=== PATIENT | male | born 1975 | race Caucasian/White ===

== ENCOUNTER 2018-05-03 15:53 | Observation (INO) ==
[2018-05-03] MEDS ORDERED: Isovue-370 500 ML INFUS..BTL IV ONE (16:25)
--- NOTE | 2018-05-03 17:01 | Emergency Department Note ---
Disposition Clinical Impression: Abscess Disposition: Admitted As Inpatient Condition: Good Time of Disposition: 20:59 General Adult HPI - General Chief complaint: ED GI Bleed Stated complaint: Need CT Time Seen by Provider: 05/03/18 16:15 Source: patient Limitations: no limitations Nursing Notes Reviewed: Yes Vital Signs Reviewed: Yes - History of Present Illness HPI Narrative: 42yo male presents from home at the recommendation of his surgeon, Dr. Jacobo. 6 days ago, patient began expressing symptoms of a hemorrhoid. 4 days ago, he was diagnosed with hemorrhoid urgent care. 2 days ago, he followed up with his primary care physician who diagnosed him with a thrombosed hemorrhoid and referred to general surgery. 2 days ago, he saw general surgery who noted the thrombosed steroid was too old for surgical resection. Since then, patient has had worsening pain perianally when sitting and has a palpable increase in renal swelling. He has had chills at night for the last 2 nights. He called his surgeon today who is concerned that the thrombosed hemorrhoid may have developed into an abscess. ROS: Positive: As above Negative: Melena, hematochezia, dysuria, lower extremity numbness/tingling/ weakness, saddle anesthesia, measured fever, chest pains, palpitations, dyspnea , diaphoresis, abdominal pain, usual back pain. No history of IV drug use. Pain Scale: 7 - Related Data Home Medications Medication Instructions Recorded Confirmed Methotrexate 04/29/18 Tylenol 04/29/18 Previous Rx's Medication Instructions Recorded Hydrocortisone [Anusol-Hc] 30 gm RC BID 14 Days #24 cream..g. 04/29/18 Allergies Allergy/AdvReac Type Severity Reaction Status Date / Time Penicillins [PCN] AdvReac Hives Verified 04/29/18 20:41 All systems ED: reviewed and negative except as stated. Review of Systems: As Per HPI Past Medical History - Past Medical History Medical history: Reports: non-contributory, cirrhosis - Social History Smoking Status: Never smoker Smokeless Tobacco Status: No Alcohol use: Reports: none Physical Exam Vital Signs Reviewed General: Patient is alert, oriented, and in no acute distress. Head: atraumatic, normocephalic Eye: normal appearance, PERRL, EOMI, no scleral icterus, no conjunctival injection ENT: mucous membranes moist, normal external ear exam Neck: normal inspection, trachea midline, full ROM Chest: normal inspection, symmetric chest rise Respiratory: Good respiratory effort. Bilateral breath sounds are clear without wheezing, crackles, or rhonchi. Cardiovascular: Regular rate and rhythm. No clicks, rubs, gallops, or murmors. Normal heart sounds. Abdomen: Bowel sounds present normoactive x-4 quadrants. Abdomen is soft, nondistended, and nontender. No guarding or rebound. Rectal exam: Payroll Accounting Specialist present. External rectal exam revealed anterior hemorrhoid which appeared thrombosed. There is left perianal erythema with fluctuant subcutaneous mass, exquisitely tender to palpation. Digital rectal exam was not performed. Musculoskeletal: Spontaneously moving all extremities. Skin: warm, dry, intact. Neuro: Alert and oriented x4. Sensation light touch intact. Psych: Patient's affect is appropriate for situation. - General Limitations: no limitations General appearance: alert, in no apparent distress Course Course Narrative: CT abdomen pelvis with IV contrast. Patient denies need for analgesia at this time. No clinical concerns for sepsis. Clinically concern for abscess. Physical exam clinically consistent with perirectal abscess. CT abdomen pelvis indeterminate per radiology read. On my evaluation, there does appear to be inflammatory changes; uncertain about fluid collection based on CT abdomen pelvis with IV contrast. Begin empiric antibiotics: Levaquin and Flagyl. Discussed the patient with the on-call surgeon, Dr. Neil, who agrees to accept the patient to his service for continued evaluation and management. Discussed the above with the patient. He is agreeable to admission for continued evaluation and management. Initially refused the for analgesia however, along the ED, his pain is progressed and is requesting pain control medication at this time. Will provide fentanyl. Abdomen/Pelvis CT 05/03/18 16:25 IMPRESSION: Inflammatory changes surrounding the anus, greater on the left. These changes may represent inflammation due to a thrombosed hemorrhoid. A developing abscess, however, is not excluded as the abnormality is incompletely imaged. CT of the pelvis with contrast to include the upper thighs is suggested for further evaluation. D/ / 05/03/2018 18:32:59 Carson Brian MD / anna Interpreting Provider: Carson Brian MD Vital Signs Temperature 97.9 F 05/03/18 16:07 Pulse Rate 84 05/03/18 16:07 Respiratory Rate 16 05/03/18 16:07 Blood Pressure 129/81 05/03/18 16:07 O2 Sat by Pulse Oximetry 97 05/03/18 16:07 Temperature 98.7 F 05/03/18 20:53 Pulse Rate 76 05/03/18 20:53 Respiratory Rate 14 05/03/18 20:53 Blood Pressure 131/80 05/03/18 20:53 O2 Sat by Pulse Oximetry 94 05/03/18 20:53 Oxygen Delivery Oxygen Delivery Room Air Medical Decision Making - Lab Data Result diagrams: 05/03/18 16:25 05/03/18 16:21 Lab Results 05/03/18 05/03/18 05/03/18 Range/Units 16:21 16:23 16:25 WBC 13.1 H (4.3-11.1) K/mcL RBC 4.76 (4.19-5.50) M/mcL Hgb 14.4 (12.9-16.9) g/dL Hct 41.8 (37.5-50.1) % MCV 87.8 (83.0-100.0) fL MCH 30.3 (28.0-33.3) pg MCHC 34.4 (31.6-35.5) g/dL RDW 13.0 (11.5-14.5) % Plt Count 332 (140-400) K/mcL MPV 11.5 (9.4-12.4) fL Immature Gran % 0.4 (0-4) % Seg Neutrophils % 77.9 % Lymphocytes % 12.9 % Monocytes % 7.7 % Eosinophils % 0.8 % Basophils % 0.3 % Neutrophils # 10.2 H (1.6-8.9) K/mcL Lymphocytes # 1.7 (0.6-4.6) K/mcL Monocytes # 1.0 (0.0-1.3) K/mcL Eosinophils # 0.1 (0.0-0.6) K/mcL Basophils # 0.0 (0.0-0.2) K/mcL PT 12.5 H (9.4-12.1) Seconds INR 1.1 Sodium 136 (136-145) mEq/L Potassium 3.4 L (3.5-5.1) mEq/L Chloride 95 L (98-107) mEq/L Carbon Dioxide 36 H (23-29) mEq/L BUN 15 (6-20) mg/dL Creatinine 0.91 (0.70-1.30) mg/dL Est GFR ( Amer) > 60 (> 60) Est GFR (Non-Af Amer) > 60 (> 60) BUN/Creatinine Ratio 16 (6-26) Glucose 110 H (70-105) mg/dL Calculated Osmolality 283 (280-300) Calcium 9.8 (8.6-10.3) mg/dL Total Bilirubin 0.6 (0.3-1.0) mg/dL AST 26 (13-39) Units/L ALT 52 (7-52) Units/L Alkaline Phosphatase 91 (34-104) Units/L Serum Total Protein 7.5 (6.4-8.9) g/dL Albumin 4.0 (3.5-5.7) g/dL Globulin 3.5 (2.4-3.5) g/dL Albumin/Globulin Ratio 1.1 (1.1-2.2)
[2018-05-03 17:10] LABS: Basophils % 0.3 %; Eosinophils # 0.1 K/mcL (0.0-0.6); Eosinophils % 0.8 %; Hematocrit 41.8 % (37.5-50.1); Hemoglobin 14.4 g/dL (12.9-16.9); Immature Granulocytes % 0.4 % (0-4); Lymphocytes # 1.7 K/mcL (0.6-4.6); Lymphocytes % 12.9 %; Mean Corpuscular HGB Conc 34.4 g/dL (31.6-35.5); Mean Corpuscular Hemoglobin 30.3 pg (28.0-33.3); Mean Corpuscular Volume 87.8 fL (83.0-100.0); Mean Platelet Volume 11.5 fL (9.4-12.4); Monocytes % 7.7 %; Neutrophils # 10.2 K/mcL (1.6-8.9); Platelet Count 332 K/mcL (140-400); Red Blood Count 4.76 M/mcL (4.19-5.50); Segmented Neutrophils % 77.9 %
[2018-05-03 17:17] LABS: INR 1.1; Prothrombin Time 12.5 Seconds (9.4-12.1)
--- NOTE | 2018-05-03 17:24 | Emergency Department Note ---
Disposition Clinical Impression: Abscess Disposition: Admitted As Inpatient Condition: Good General Adult HPI - General Chief complaint: ED GI Bleed Stated complaint: Need CT Time Seen by Provider: 05/03/18 16:15 Source: patient Limitations: no limitations - History of Present Illness Pain Scale: 7 - Related Data Home Medications Medication Instructions Recorded Confirmed Methotrexate 04/29/18 Tylenol 04/29/18 Previous Rx's Medication Instructions Recorded Hydrocortisone [Anusol-Hc] 30 gm RC BID 14 Days #24 cream..g. 04/29/18 Allergies Allergy/AdvReac Type Severity Reaction Status Date / Time Penicillins [PCN] AdvReac Hives Verified 04/29/18 20:41 Past Medical History - Past Medical History Medical history: Reports: non-contributory, cirrhosis - Social History Smoking Status: Never smoker Smokeless Tobacco Status: No Alcohol use: Reports: none Physical Exam - General Limitations: no limitations General appearance: alert, in no apparent distress Course Vital Signs Temperature 97.9 F 05/03/18 16:07 Pulse Rate 84 05/03/18 16:07 Respiratory Rate 16 05/03/18 16:07 Blood Pressure 129/81 05/03/18 16:07 O2 Sat by Pulse Oximetry 97 05/03/18 16:07 Temperature 98.7 F 05/03/18 20:53 Pulse Rate 76 05/03/18 20:53 Respiratory Rate 14 05/03/18 20:53 Blood Pressure 131/80 05/03/18 20:53 O2 Sat by Pulse Oximetry 94 05/03/18 20:53 Oxygen Delivery Oxygen Delivery Room Air Medical Decision Making - Lab Data Result diagrams: 05/03/18 16:25 05/03/18 16:21 Lab Results 05/03/18 05/03/18 05/03/18 Range/Units 16:21 16:23 16:25 WBC 13.1 H (4.3-11.1) K/mcL RBC 4.76 (4.19-5.50) M/mcL Hgb 14.4 (12.9-16.9) g/dL Hct 41.8 (37.5-50.1) % MCV 87.8 (83.0-100.0) fL MCH 30.3 (28.0-33.3) pg MCHC 34.4 (31.6-35.5) g/dL RDW 13.0 (11.5-14.5) % Plt Count 332 (140-400) K/mcL MPV 11.5 (9.4-12.4) fL Immature Gran % 0.4 (0-4) % Seg Neutrophils % 77.9 % Lymphocytes % 12.9 % Monocytes % 7.7 % Eosinophils % 0.8 % Basophils % 0.3 % Neutrophils # 10.2 H (1.6-8.9) K/mcL Lymphocytes # 1.7 (0.6-4.6) K/mcL Monocytes # 1.0 (0.0-1.3) K/mcL Eosinophils # 0.1 (0.0-0.6) K/mcL Basophils # 0.0 (0.0-0.2) K/mcL PT 12.5 H (9.4-12.1) Seconds INR 1.1 Sodium 136 (136-145) mEq/L Potassium 3.4 L (3.5-5.1) mEq/L Chloride 95 L (98-107) mEq/L Carbon Dioxide 36 H (23-29) mEq/L BUN 15 (6-20) mg/dL Creatinine 0.91 (0.70-1.30) mg/dL Est GFR ( Amer) > 60 (> 60) Est GFR (Non-Af Amer) > 60 (> 60) BUN/Creatinine Ratio 16 (6-26) Glucose 110 H (70-105) mg/dL Calculated Osmolality 283 (280-300) Calcium 9.8 (8.6-10.3) mg/dL Total Bilirubin 0.6 (0.3-1.0) mg/dL AST 26 (13-39) Units/L ALT 52 (7-52) Units/L Alkaline Phosphatase 91 (34-104) Units/L Serum Total Protein 7.5 (6.4-8.9) g/dL Albumin 4.0 (3.5-5.7) g/dL Globulin 3.5 (2.4-3.5) g/dL Albumin/Globulin Ratio 1.1 (1.1-2.2) Attestation Statement - Attestation Attestation: I examined this patient and my medical decision-making was reviewed with the Resident Physician. I agree with the documented findings, disposition and treatment plan as described except to the extent set forth below. Patient to the ED with a chief complaint of possible abscess. Patient's all surgery Tuesday for thrombosed hemorrhoid. It is more painful and is having fever chills so they sent him for CT rule out an abscess. Plan. CT pelvis. CT reviewed. Reexamined patient. He has a large erythematous tender area at the 9 o'clock position. This appears consistent with an early abscess. IV antibiotic. Patient is admitted. Abdomen/Pelvis CT 05/03/18 16:25 IMPRESSION: Inflammatory changes surrounding the anus, greater on the left. These changes may represent inflammation due to a thrombosed hemorrhoid. A developing abscess, however, is not excluded as the abnormality is incompletely imaged. CT of the pelvis with contrast to include the upper thighs is suggested for further evaluation. D/ / 05/03/2018 18:32:59 Carson Brian MD / anna Interpreting Provider: Carson Brian MD
[2018-05-03 17:48] LABS: Alanine Aminotransferase 52 Units/L (7-52); Albumin/Globulin Ratio 1.1 (1.1-2.2); Alkaline Phosphatase 91 Units/L (34-104); Aspartate Amino Transferase 26 Units/L (13-39); BUN/Creatinine Ratio 16 (6-26); Bilirubin,Total 0.6 mg/dL (0.3-1.0); Blood Urea Nitrogen 15 mg/dL (6-20); Calcium 9.8 mg/dL (8.6-10.3); Carbon Dioxide 36 mEq/L (23-29); Chloride 95 mEq/L (98-107); Globulin 3.5 g/dL (2.4-3.5); Glucose 110 mg/dL (70-105); Osmolality,Calculated 283 (280-300); Potassium 3.4 mEq/L (3.5-5.1); Sodium 136 mEq/L (136-145); Total Protein 7.5 g/dL (6.4-8.9); eGFR For Non-African Americans > 60 (> 60)
[2018-05-03] MEDS ORDERED: *HR* FentaNYL (PF) 100 MCG/2 ML VIAL IVP ONE (17:57)
[2018-05-03] MEDS ORDERED: Levofloxacin 750 MG/150 ML 750 MG/150 ML BAG IVPB ONE (18:41)
[2018-05-03] MEDS ORDERED: MetroNIDAZOLE 500 MG/100 ML 500 MG/100 ML BAG IVPB ONE (18:41)
[2018-05-03] MEDS ORDERED: *HR* OxyCODONE/APAP 5/325 TABLET PO PRN (21:21)
[2018-05-03] MEDS ORDERED: Ondansetron 4 MG/2 ML VIAL IVP PRN (21:24)
[2018-05-03] MEDS ORDERED: 0.9 % Sodium Chloride 1,000 ML IVC SCH (21:30)
[2018-05-04] MEDS: *HR* OxyCODONE/APAP 10/325 TABLET PO PRN ×3 (01:25→21:14)
[2018-05-04] MEDS ORDERED: MetroNIDAZOLE 500 MG/100 ML 500 MG/100 ML BAG IVPB SCH ×2 (03:00→11:00)
--- NOTE | 2018-05-04 09:26 | General Surg History&Physical ---
<Cierra Kaba - Last Filed: 05/04/18 10:17> Date of Encounter: 05/04/18 Time of Encounter: 07:30 Assessment and Plan (1) Abscess Current Visit: Yes Status: Acute The assessment and plan as outlined above was discussed with the patient and/or family members who expressed understanding and agreement. All questions were answered. Versus internal hemorrhoids versus concomitant abscess/internal hemorrhoids. He is recommended to undergo exam under anesthesia and incision and drainage of the perirectal abscess. We will plan for surgical intervention in the next 24 to 48 hours. Recommendations, risks, and benefits have been reviewed with the patient and he is agreeable to proceed. A signed consent is placed on the hard chart. (2) Internal hemorrhoid Current Visit: No Status: Acute The assessment and plan as outlined above was discussed with the patient and/or family members who expressed understanding and agreement. All questions were answered. (3) DVT prophylaxis Current Visit: Yes Status: Acute The assessment and plan as outlined above was discussed with the patient and/or family members who expressed understanding and agreement. All questions were answered. EPCDs ambulation History of Present Illness Chief complaint: perianal pain when sitting HPI: Mr. Sidhu is a 42 year old male who presented on 05/03/2018 at the recommendation of Dr. Jacobo. Approximately 6 days ago patient had been with concerns of the possible hemorrhoid. He stated it 4 days ago he was seen in urgent care and diagnosed with a hemorrhoid and then on 05/01/2018 he saw his primary care physician who diagnosed him with thrombosed hemorrhoid and referred him to general surgery. He then saw Dr. Jacobo to recommended the hemorrhoid was likely to old for a surgical resection and if he had worsening pain to return. He called the office stating that he felt like the area have developed into an abscess and was advised to come to the emergency department. He denies fever, chills, headache, dizziness, chest pain, shortness of breath, abdominal discomfort, nausea, vomiting, urinary signs or symptoms. He denies constipation or diarrhea, he denies black bloody or tarry stool. He endorses pain in the anus when sitting and but denies feelings of drainage. Past Med Surg Social Fam HX - Past Medical History Source: patient Medical history: non-contributory Additional medical history: Soriatic arthritis, psoriasis of the skin Psychiatric history: no psych history - Past Surgical History Surgical History: no surgical history - Social History Smoking Status: Never smoker Smokeless Tobacco Status: No Alcohol use: rarely Drug use: none Occupational status: employed Current living situation: Home - Independent Activity Level: Independent ambulation Recent Out of Country Travel Within the Last 8 Weeks: No Exposure or Possible Exposure to Illness During Travel: No - Family History Mother Living Status: Still Living Hx Family Endocrine Disorder: Yes (DM) Medications and Allergies Acetaminophen [Tylenol] 500 mg PO DAILY PRN 05/03/18 [History] Atenolol/Chlorthalidone [Tenoretic 50 Tablet] 1 tab PO DAILY 05/03/18 [History] Cholecalciferol (D-3) [Vitamin D] 2,000 unit PO DAILY 05/03/18 [History] Folic Acid 1 mg PO DAILY 05/03/18 [History] HYDROcodone/Acet 5/325 mg [[place] 5-325 mg] 1 tab PO Q6H PRN 05/03/18 [History] Methotrexate Sodium/PF [Methotrexate 50 mg/2 ml Vial] 25 mg IM QWEEK 05/03/18 [ History] Sildenafil Citrate [Revatio] 20 mg PO TID PRN 05/03/18 [History] Sulindac 150 mg PO BID 05/03/18 [History] 3 Allergy/AdvReac Type Severity Reaction Status Date / Time Penicillins [PCN] AdvReac Hives Verified 04/29/18 20:41 Review of Systems All systems PM: reviewed and no additional remarkable complaints except as stated All systems PM: The remainder of the systems were reviewed and are negative General Surgery Exam Initial Vital Signs Temp Pulse Resp BP Pulse Ox 97.9 F 84 16 129/81 97 05/03/18 16:07 05/03/18 16:07 05/03/18 16:07 05/03/18 16:07 05/03/18 16:07 VITAL SIGNS: Reviewed. See [facility] GENERAL: In no apparent distress. HEENT: Normocephalic, atraumatic, pupils are equal and reactive, extraocular motions intact, oropharynx is pink and moist, there is no neck adenopathy or JVD noted. CHEST/RESPIRATORY: The thorax is free from signs of trauma. Lung sounds: clear to auscultation, normal respiratory effort CARDIAC: Regular rate and rhythm. Normal S1 and S2, without murmurs, gallops, or rubs. VASCULAR: No Edema. 2+ peripheral pulses. ABDOMEN: soft, nontender, obese ANAL/GLUTEAL: External anal exam is with an area on the left perianal area of induration aprox 4 cm in diameter with an area of fluctuance in the middle aprox 2 cm in diameter. No drainage noted. MUSCULOSKELETAL: Good range of motion of all major joints. Extremities without clubbing, cyanosis or edema. NEUROLOGIC EXAM: Alert and oriented x 3. Speech normal. Follows commands. PSYCHIATRIC: Mood normal. SKIN: No rash or lesions. Results - Labs 05/03/18 16:25 05/03/18 16:21 Abnormal lab results WBC 13.1 K/mcL (4.3-11.1) H 05/03/18 16:25 Neutrophils # 10.2 K/mcL (1.6-8.9) H 05/03/18 16:25 PT 12.5 Seconds (9.4-12.1) H 05/03/18 16:23 Potassium 3.4 mEq/L (3.5-5.1) L 05/03/18 16:21 Chloride 95 mEq/L (98-107) L 05/03/18 16:21 Carbon Dioxide 36 mEq/L (23-29) H 05/03/18 16:21 Glucose 110 mg/dL (70-105) H 05/03/18 16:21 All other labs normal. - Imaging CT scan - abdomen: report reviewed CT scan - pelvis: report reviewed <Abdulkadir Neil - Last Filed: 05/04/18 16:19> Date of Encounter: 05/04/18 Assessment and Plan (1) Internal hemorrhoid Current Visit: No Status: Acute The assessment and plan as outlined above was discussed with the patient and/or family members who expressed understanding and agreement. All questions were answered. (2) Abscess Current Visit: Yes Status: Acute The assessment and plan as outlined above was discussed with the patient and/or family members who expressed understanding and agreement. All questions were answered. (3) DVT prophylaxis Current Visit: Yes Status: Acute The assessment and plan as outlined above was discussed with the patient and/or family members who expressed understanding and agreement. All questions were answered. History of Present Illness HPI: Mr. Sidhu is a 42 year old male Review of Systems All systems PM: The remainder of the systems were reviewed and are negative General Surgery Exam Initial Vital Signs Temp Pulse Resp BP Pulse Ox 97.9 F 84 16 129/81 97 05/03/18 16:07 05/03/18 16:07 05/03/18 16:07 05/03/18 16:07 05/03/18 16:07 Results - Labs 05/03/18 16:25 05/03/18 16:21 Abnormal lab results WBC 13.1 K/mcL (4.3-11.1) H 05/03/18 16:25 Neutrophils # 10.2 K/mcL (1.6-8.9) H 05/03/18 16:25 PT 12.5 Seconds (9.4-12.1) H 05/03/18 16:23 Potassium 3.4 mEq/L (3.5-5.1) L 05/03/18 16:21 Chloride 95 mEq/L (98-107) L 05/03/18 16:21 Carbon Dioxide 36 mEq/L (23-29) H 05/03/18 16:21 Glucose 110 mg/dL (70-105) H 05/03/18 16:21 POC Glucose 117 mg/dL (70-99) H 05/04/18 11:54 All other labs normal. - Attending Attestation I have personally performed a face to face evaluation on this patient. I have reviewed and agree with the care plan. History and Exam by me shows: The patient is seen and evaluated with the clinical nurse practitioner. The patient has a perirectal abscess. We will plan incision and drainage with exam under anesthesia with possible unroofing of anal fistula Abdulkadir Neil MD FACS
--- NOTE | 2018-05-04 14:57 | Anesthesia Evaluation PreOp ---
<[place] Sam - Last Filed: 05/04/18 14:55> Date of Encounter: 05/04/18 Time of Encounter: 14:55 - Past History Planned Operation: EUA, I&D perirectal abcess Other Medical History: Other (Psoriatic arthritis, psoriasis) Alcohol Use: rarely Drug use: none Medications and Allergies Acetaminophen [Tylenol] 500 mg PO DAILY PRN 05/03/18 [History] Atenolol/Chlorthalidone [Tenoretic 50 Tablet] 1 tab PO DAILY 05/03/18 [History] Cholecalciferol (D-3) [Vitamin D] 2,000 unit PO DAILY 05/03/18 [History] Folic Acid 1 mg PO DAILY 05/03/18 [History] HYDROcodone/Acet 5/325 mg [[place] 5-325 mg] 1 tab PO Q6H PRN 05/03/18 [History] Methotrexate Sodium/PF [Methotrexate 50 mg/2 ml Vial] 25 mg IM QWEEK 05/03/18 [ History] Sildenafil Citrate [Revatio] 20 mg PO TID PRN 05/03/18 [History] Sulindac 150 mg PO BID 05/03/18 [History] 3 Allergy/AdvReac Type Severity Reaction Status Date / Time Penicillins [PCN] AdvReac Hives Verified 04/29/18 20:41 Anesthesia Results - Labs 05/03/18 16:25 05/03/18 16:21 <Rochelle Eric - Last Filed: 05/04/18 15:32> Date of Encounter: 05/04/18 - Past History Cardiac History: HTN Pulmonary History: Denies Any Significant HX CORN GRINDER History: Denies Any Significant HX Other Medical History: Denies Any Significant HX, Other Anesthesia History: No Prior Anesthetic Complications, Past Anesthesia Alcohol Use: rarely Drug use: none - Meds/Allergy Pre-op Review Medications Reviewed: Yes Allergies Reviewed: Yes Beta Blockers on Current Med List: Yes (last dose yesterday AM) Anesthesia Results - Labs 05/03/18 16:25 05/03/18 16:21 Anesthesia Exam Selected Entries 05/04/18 13:46 Temperature 98.1 F Pulse Rate 62 Respiratory Rate 18 Blood Pressure 104/62 O2 Sat by Pulse Oximetry 94 Weight: 141 kg NPO (# of Hours): over 8 hours - HEENT Pupil (Motor): Pupils equal Mallampati: II Teeth: Normal Oral Opening: Greater than 3 - Cardiac Rhythm: Regular Murmur: None - Pulmonary Respiratory Effort: Symmetrical Anesthesia Assess/Plan ASA Score: 2 Modified [place] Scale for Level of Consciousness: Cooperative, oriented, and tranquil Anesthetic Plan: General Monitoring Plan: Standard Monitors Recovery Plan: PACU (Discussed GA, risks. Agreed to proceed.)
[2018-05-04] MEDS ORDERED: Ondansetron 4 MG/2 ML VIAL ONE (15:12)
[2018-05-04] MEDS ORDERED: *HR* Propofol 200 MG/20 ML VIAL IVP ONE (15:12)
[2018-05-04] MEDS ORDERED: *HR* FentaNYL (PF) 100 MCG/2 ML VIAL ONE ×2 (15:12→16:12)
[2018-05-04] MEDS ORDERED: *HR* Midazolam HCl 2 MG/2 ML VIAL ONE (15:12)
[2018-05-04] MEDS ORDERED: Lidocaine -MPF 2% 2 ML VIAL ONE (15:12)
[2018-05-04] MEDS ORDERED: Ketorolac 30 MG/ML VIAL ONE (15:12)
[2018-05-04] MEDS ORDERED: *HR* Succinylcholine 200 MG/10 ML VIAL IVP ONE (15:13)
[2018-05-04] MEDS ORDERED: Lidocaine -MPF 4% 5 ML AMPUL ONE (15:16)
[2018-05-04] MEDS ORDERED: CefOXitin 1,000 MG VIAL ONE (15:34)
[2018-05-04] MEDS ORDERED: Dexamethasone 4 MG/ML VIAL ONE (15:58)
--- NOTE | 2018-05-04 16:23 | Operative Note ---
Date of procedure: 05/04/18 Pre-op diagnosis: perirectal abcess Post-op diagnosis: other (perirectal abcess and anal fistula) Procedure: #1 incision and drainage perirectal abscess #2 exam under anesthesia and #3 unroofing of anal fistula Anesthesia: ZARINA Surgeon: Abdulkadir Neil Was there an accounting manager assistant controller present: Yes Sewer Cleaner: Connie Peña Estimated blood loss (cc): 10 Specimen: None Condition: stable Disposition: PACU Procedure in Detail: After informed consent the patients taking major operative suite placed in supine position given adequate general anesthetic. The perineum was prepped and draped in sterile fashion utilizing Betadine solution standard draping techniques. Lithotomy position was used. Timeout was taken and the patient was identified. Was immediately apparent that he had a left-sided perirectal abscess. I opened into the perirectal abscess with #15 blade and drained a large amount of purulent material. I held direct pressure on the abscess. I performed anoscopy. The dentate line was identified and I was able to immediately identified opening into an anal fistula leading to the abscess. I placed a Hook into the fistula and unroofed the entire length of the anal fistula. There were a few fibers from the internal anal sphincter that were involved in the fistula. This was a transsphincteric fistula. I irrigated with copious amounts of antibiotic containing solution. The anus and abscess cavity were packed with iodoform
[2018-05-04] MEDS ORDERED: *HR* Promethazine 25 MG/ML VIAL IVP PRN (16:46)
[2018-05-04] MEDS ORDERED: *HR* Morphine 2 MG/ML SYRINGE IVP PRN (16:46)
[2018-05-04] MEDS ORDERED: Ketorolac 30 MG/ML VIAL IVP ONE (16:46)
[2018-05-04] MEDS ORDERED: Acetaminophen IV 1,000 MG/100 ML INFUS..BTL IVPB ONE (16:46)
[2018-05-04] MEDS: *HR* HYDROmorphone (PF) 1 MG/ML SYRINGE IVP PRN ×2 (17:00→17:15)
[2018-05-04] MEDS ORDERED: Ringers Solution, Lactated 1,000 ML IVC SCH (17:00)
--- NOTE | 2018-05-04 17:25 | Anesthesia Evaluation Post Op ---
Date of Encounter: 05/04/18 Time of Encounter: 16:40 - Vital Signs Vital Signs: Selected Entries 05/04/18 17:10 05/04/18 17:20 Temperature 98.9 F Pulse Rate 81 Respiratory Rate 16 Blood Pressure 154/91 O2 Sat by Pulse Oximetry 98 - Lungs Lungs: Clear Ascult./Percussion - Airway Airway: Non-obstructed - Mental Status Mental Status: Alert & Oriented, Answers Appropriately - Nausea Vomiting Nausea Vomiting: Not Present - Hydration Hydration: NPO Notes: 05/04/18 17:24 Initially complaining of 10/10 pain, required additional narcotic in PACU. Improved to 6/10. - Discharge PostOp Status: Transfer Patient to floor
[2018-05-04] MEDS ORDERED: Ondansetron 4 MG/2 ML VIAL IVP PRN (18:11)
[2018-05-04] MEDS ORDERED: 0.9 % Sodium Chloride 1,000 ML IVC SCH (18:11)
[2018-05-04] MEDS: MetroNIDAZOLE 500 MG/100 ML 500 MG/100 ML BAG IVPB SCH (21:14)
[2018-05-05] MEDS: MetroNIDAZOLE 500 MG/100 ML 500 MG/100 ML BAG IVPB SCH ×2 (04:59→11:30)
[2018-05-05] MEDS: *HR* OxyCODONE/APAP 10/325 TABLET PO PRN ×2 (05:00→11:31)
[2018-05-05 07:01] LABS: Basophils % 0.2 %; Hematocrit 37.6 % (37.5-50.1); Hemoglobin 12.9 g/dL (12.9-16.9); Immature Granulocytes % 0.5 % (0-4); Lymphocytes # 1.4 K/mcL (0.6-4.6); Lymphocytes % 10.8 %; Mean Corpuscular HGB Conc 34.3 g/dL (31.6-35.5); Mean Corpuscular Hemoglobin 30.3 pg (28.0-33.3); Mean Corpuscular Volume 88.3 fL (83.0-100.0); Mean Platelet Volume 11.4 fL (9.4-12.4); Monocytes # 0.8 K/mcL (0.0-1.3); Monocytes % 5.9 %; Platelet Count 338 K/mcL (140-400); Red Blood Count 4.26 M/mcL (4.19-5.50); Red Cell Distribution Width 13.1 % (11.5-14.5); Segmented Neutrophils % 82.6 %
[2018-05-05 07:15] LABS: BUN/Creatinine Ratio 22 (6-26); Blood Urea Nitrogen 20 mg/dL (6-20); Calcium 9.5 mg/dL (8.6-10.3); Carbon Dioxide 30 mEq/L (23-29); Chloride 99 mEq/L (98-107); Glucose 135 mg/dL (70-105); Osmolality,Calculated 289 (280-300); Sodium 137 mEq/L (136-145); eGFR For Non-African Americans > 60 (> 60)
--- NOTE | 2018-05-05 10:24 | Discharge Summary ---
<Nemesio Cervantes - Last Filed: 05/05/18 14:31> Date of Encounter: 05/05/18 Time of Encounter: 10:33 - Discharge Diagnosis (1) Darline-rectal abscess Priority: Primary Status: Acute General Surgery Exam Initial Vital Signs Temp Pulse Resp BP Pulse Ox 97.9 F 84 16 129/81 97 05/03/18 16:07 05/03/18 16:07 05/03/18 16:07 05/03/18 16:07 05/03/18 16:07 - General physical appearance well developed, well nourished, no distress, obese - Eyes PERRL, normal ocular movement - ENT normal mucosa, atraumatic, normocephalic - Neck trachea midline, no venous distension - Respiratory normal expansion, normal respiratory effort, clear to auscultation - Cardiovascular Cardiovascular exam: Present: RRR - Abdomen Abdomen general surgery: Present: bowel sounds present, soft, non tender - Rectum Rectum: Present: other (Clean and dry dressing with packing in place. ) - Integumentary Integumentary general surgery: Present: warm and dry - Neurologic Present: CN 2-12 grossly intact - Musculoskeletal Present: normal posture - Psychiatric Psychiatric general surgery: Present: A&Ox3, speech is normal, memory intact - Hospital Course Hospital course: Mr. Sidhu is a 42 year old male presented on 05/03/2018 for evaluation of perirectal abscess. He was admitted and started on IV antibiotics flagyl/cipro. He underwent intraoperative incision and drainage with unroofing of rectally draining fistula on 05/04/2018. The abscess cavity has been packed and covered with clean and dry dressings. He tolerated the procedure well. He has been continued on the antibiotics. Packing was removed and repacked today. Patient is tolerating regular diet without nausea or vomiting. Pain has been well controlled. Labs and vitals have remained stable, afebrile. Ambulating well without difficulty. Patient will be planned for discharge this afternoon. Continue cipro/flagyl oral therapy for 1 week and follow up in outpatient clinic is scheduled on 05/11/2018 at 10:45 am with Kylah Goode CNP. Patient was informed of risk associated with alcohol consumption while on Metronidazole. 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 To continue daily packing until seen in the office. - Time Spent with Patient Total time spent providing and/or coordinating discharge services: - Discharge Medications Prescriptions: OxyCODONE/APAP 5/325 [Percocet 5/325 MG] 1 each PO Q6HR PRN 5 Days #21 tablet PRN Reason: Pain Ciprofloxacin [Cipro] 500 mg PO BID #14 tablet Docusate [Colace] 100 mg PO BID #30 capsule Ibuprofen 800 mg PO TID PRN #30 tablet PRN Reason: Pain metroNIDAZOLE [Flagyl] 500 mg PO TID #21 tablet Home Medications: Acetaminophen [Tylenol] 500 mg PO DAILY PRN 05/03/18 [History] Atenolol/Chlorthalidone [Tenoretic 50 Tablet] 1 tab PO DAILY 05/03/18 [History] Cholecalciferol (D-3) [Vitamin D] 2,000 unit PO DAILY 05/03/18 [History] Folic Acid 1 mg PO DAILY 05/03/18 [History] HYDROcodone/Acet 5/325 mg [[place] 5-325 mg] 1 tab PO Q6H PRN 05/03/18 [History] Methotrexate Sodium/PF [Methotrexate 50 mg/2 ml Vial] 25 mg IM QWEEK 05/03/18 [ History] Sildenafil Citrate [Revatio] 20 mg PO TID PRN 05/03/18 [History] Sulindac 150 mg PO BID 05/03/18 [History] Ciprofloxacin [Cipro] 500 mg PO BID #14 tablet 05/05/18 [Rx] Docusate [Colace] 100 mg PO BID #30 capsule 05/05/18 [Rx] Ibuprofen 800 mg PO TID PRN #30 tablet 05/05/18 [Rx] OxyCODONE/APAP 5/325 [Percocet 5/325 MG] 1 each PO Q6HR PRN 5 Days #21 tablet [Rx] metroNIDAZOLE [Flagyl] 500 mg PO TID #21 tablet 05/05/18 [Rx] Allergies/Adverse Reactions: 3 Allergy/AdvReac Type Severity Reaction Status Date / Time Penicillins [PCN] AdvReac Hives Verified 04/29/18 20:41 Date of admission: 05/03/18 19:47 Primary care physician: Sesar Clements DO Discharging clinician: Nemesio Cervantes Anticipated date of discharge: 09/14/18 Labs on day of discharge: Labs from last 24 hours 05/05/18 05/05/18 05/04/18 06:44 06:44 18:02 WBC 13.3 H RBC 4.26 Hgb 12.9 D Hct 37.6 MCV 88.3 MCH 30.3 MCHC 34.3 RDW 13.1 Plt Count 338 MPV 11.4 Immature Gran % 0.5 Seg Neutrophils % 82.6 Lymphocytes % 10.8 Monocytes % 5.9 Eosinophils % 0.0 Basophils % 0.2 Neutrophils # 11.0 H Lymphocytes # 1.4 Monocytes # 0.8 Eosinophils # 0.0 Basophils # 0.0 Sodium 137 Potassium 4.0 Chloride 99 Carbon Dioxide 30 H BUN 20 Creatinine 0.89 Est GFR ( Amer) > 60 Est GFR (Non-Af Amer) > 60 BUN/Creatinine Ratio 22 Glucose 135 H POC Glucose 127 H Calculated Osmolality 289 Calcium 9.5 05/04/18 05/04/18 11:54 05:35 WBC RBC Hgb Hct MCV MCH MCHC RDW Plt Count MPV Immature Gran % Seg Neutrophils % Lymphocytes % Monocytes % Eosinophils % Basophils % Neutrophils # Lymphocytes # Monocytes # Eosinophils # Basophils # Sodium Potassium Chloride Carbon Dioxide BUN Creatinine Est GFR ( Amer) Est GFR (Non-Af Amer) BUN/Creatinine Ratio Glucose POC Glucose 117 H 105 H Calculated Osmolality Calcium - Patient Status Disposition: Home, Self-Care Condition: Good Functional capacity at discharge: independent ambulation Overall status at discharge: patient is progressing back to baseline - Discharge Instructions Instructions: Acute Wound Care (DC), Sitz Bath (DC) Follow Up With: Sesar Clements DO [Primary Care Provider] - Kylah Goode CNP [Advanced Practice Nurse] - 05/11/18 10:45 am Additional Instructions: Daily Wound Care: Remove dressing and packing. Wash/Shower with antibacterial soap. Repack with 1/4 in plain gauze. cover with a dry dressing. Tape to secure. May reinforce or change outer dressing as needed. General Surgical Discharge Instructions 1. No pushing, pulling, or lifting greater than 15 lbs for 2-4 weeks (depending upon procedure). 2. You may shower beginning today, but no tub baths, soaking, or swimming for 2 weeks. 3. You may resume driving when you are off narcotics and are safe to react in a car. 4. Take ibuprofen every 8 hours for discomfort. If this does not relieve discomfort, you may take the as needed Percocet. Take narcotics as directed. Do not take more narcotics then directed and do not share your narcotics with any other person. Do not drink alcohol while on narcotics. 5. Take stool softeners (Colace) or a water based laxative (Miralax) while taking narcotics. You may hold for loose stools. 6. Report any fevers greater than 100.5F, increase abdominal discomfort, drainage that looks like pus, increased redness or pain at the surgical site, or any vomiting. 7. Report any pain in the calves, shortness of breath, or rapid heartbeat. 8. Follow-up in the office as directed. 9. If you were prescribed antibiotics, do not stop them without talking to your provider. - Diet and Activity Activity: resume usual activities as tolerated Diet: advance to your usual diet <Abdulkadir Neil - Last Filed: 05/08/18 08:41> Date of Encounter: 05/08/18 - Discharge Diagnosis (1) Abscess Status: Acute (2) DVT prophylaxis Status: Acute General Surgery Exam Initial Vital Signs Temp Pulse Resp BP Pulse Ox 97.9 F 84 16 129/81 97 05/03/18 16:07 05/03/18 16:07 05/03/18 16:07 05/03/18 16:07 05/03/18 16:07 - Hospital Course Hospital course: Mr. Sidhu is a 42 year old male - Time Spent with Patient Total time spent providing and/or coordinating discharge services: Date of admission: 05/03/18 19:47 Primary care physician: Sesar Clements DO - Attending Attestation I examined this patient and my medical decision-making was reviewed with the Resident Physician. I agree with the documented findings, disposition and treatment plan as described except to the extent set forth below. The patient is seen and evaluated with the resident on morning rounds. He has had tremendous relief after drainage of perirectal abscess and unroofing of anal fistula. He should continue packing the abscess cavity once a day for the next 7 days. Sitz bath twice a day. Ready for discharge
[2018-05-05 12:01] VITALS: BP 117/76
== END 2018-05-05 16:06 | disposition home or self-care (01) ==
LOC: EMEROOARM 15:53 → 3ANU 15:53
PROVIDERS: ADMIT Surgery; ATTEND Surgery

== ENCOUNTER 2019-05-10 04:27 | Observation (INO) ==
[2019-05-10 05:17] LABS: Bilirubin,Urine Negative (Negative); Blood,Urine Negative (Negative); Clarity,Urine Clear (Clear); Color,Urine Yellow (Yellow); Glucose,Urine (UA) Normal (Normal); Ketones,Urine Negative (Negative); Leukocyte Esterase,Urine Negative (Negative); Nitrite,Urine Negative (Negative); PH,Urine 5.5 pH Units (5.0-8.0); Protein,Urine Negative (Neg-Trace); Specific Gravity,Urine > 1.030 (1.010-1.025); Urobilinogen,Urine Normal (Normal)
[2019-05-10 05:20] LABS: Basophils % 0.4 %; Eosinophils # 0.3 K/mcL (0.0-0.6); Hematocrit 41.9 % (37.5-50.1); Hemoglobin 13.7 g/dL (12.9-16.9); Immature Granulocytes % 0.3 % (0-4); Lymphocytes # 2.4 K/mcL (0.6-4.6); Lymphocytes % 24.1 %; Mean Corpuscular HGB Conc 32.7 g/dL (31.6-35.5); Mean Corpuscular Hemoglobin 30.3 pg (28.0-33.3); Mean Corpuscular Volume 92.7 fL (83.0-100.0); Mean Platelet Volume 11.7 fL (9.4-12.4); Monocytes # 1.1 K/mcL (0.0-1.3); Monocytes % 11.5 %; Platelet Count 323 K/mcL (140-400); Red Blood Count 4.52 M/mcL (4.19-5.50); Red Cell Distribution Width 13.6 % (11.5-14.5); Segmented Neutrophils % 60.7 %; White Blood Count 9.9 K/mcL (4.3-11.1)
[2019-05-10 05:28] LABS: Alanine Aminotransferase 21 Units/L (7-52); Albumin 4.4 g/dL (3.5-5.7); Albumin/Globulin Ratio 1.6 (1.1-2.2); Alkaline Phosphatase 65 Units/L (34-104); Aspartate Amino Transferase 17 Units/L (13-39); BUN/Creatinine Ratio 12 (6-26); Bilirubin,Direct 0.1 mg/dL (0.0-0.2); Bilirubin,Indirect 0.2 mg/dL (0.0-1.2); Bilirubin,Total 0.3 mg/dL (0.3-1.0); Blood Urea Nitrogen 18 mg/dL (6-20); Calcium 9.9 mg/dL (8.6-10.3); Carbon Dioxide 30 mEq/L (23-29); Chloride 103 mEq/L (98-107); Globulin 2.7 g/dL (2.4-3.5); Glucose 126 mg/dL (70-105); Lipase 19 Units/L (11-82); Osmolality,Calculated 291 (280-300); Potassium 3.9 mEq/L (3.5-5.1); Sodium 139 mEq/L (136-145); Total Protein 7.1 g/dL (6.4-8.9); eGFR For African Americans > 60 (> 60); eGFR For Non-African Americans 51 (> 60)
[2019-05-10] MEDS ORDERED: Ondansetron 4 MG/2 ML VIAL IVP ONE (05:36)
[2019-05-10] MEDS ORDERED: 0.9 % Sodium Chloride 1,000 ML IVC ONE (05:36)
--- NOTE | 2019-05-10 05:41 | Emergency Department Note ---
Disposition Clinical Impression: Right flank pain Disposition: Still a Patient Condition: Good Referrals: NONE,PCP [Primary Care Provider] - Forms: ED Satisfaction Letter, Work/School Release Time of Disposition: 05:56 Abdominal Pain HPI - General Chief Complaint: ED Abdominal Pain Stated Complaint: R Flank Pain Time Seen by Provider: 05/10/19 04:31 Source: patient Nursing Notes Reviewed: Yes Vital Signs Reviewed: Yes - History of Present Illness Pt Subjective Complaint: flank pain Onset (ago): Just [employer] Consistency: constant Location: R flank Pain Scale: 8 Radiation: none Migration to: no migration Worsens with: other (supine completely) Context: history of similar episodes Associated symptoms: Reports: nausea. Denies: vomiting, diarrhea, fever, chil ls, dysuria, hematemesis, hematochezia, melena, hematuria - Related Data Home Medications Medication Instructions Recorded Confirmed Acetaminophen [Tylenol] 500 mg PO DAILY PRN 05/03/18 05/10/19 Atenolol/Chlorthalidone [Tenoretic 1 tab PO DAILY 05/03/18 05/10/19 50 Tablet] Cholecalciferol (D-3) [Vitamin D] 2,000 unit PO DAILY 05/03/18 05/10/19 Folic Acid 1 mg PO DAILY 05/03/18 05/10/19 Methotrexate Sodium/PF 25 mg IM QWEEK 05/03/18 05/10/19 [Methotrexate Sodium/PF 50 MG/2 ML VIAL] Sildenafil Citrate [Revatio] 20 mg PO TID PRN 05/03/18 05/10/19 Celecoxib [Celebrex] 200 mg PO DAILY 05/10/19 05/10/19 Docusate [Colace] 100 mg PO BID PRN 05/10/19 05/10/19 Allergies Allergy/AdvReac Type Severity Reaction Status Date / Time Penicillins [PCN] AdvReac Hives Verified 05/10/19 05:15 All systems ED: reviewed and negative except as stated. Review of Systems: As Per HPI Constitutional: Denies: fever, chills, weakness Cardiovascular: Denies: chest pain, palpitations Respiratory: Denies: dyspnea Gastrointestinal: Reports: as per HPI. Denies: nausea, vomiting, diarrhea, constipation, hematemesis Genitourinary: Denies: dysuria, frequency, hematuria Musculoskeletal: Reports: as per HPI Integumentary: Denies: rash Neurological: Denies: headache Hematological/Lymphatic: Denies: lymphadenopathy Allergic/Immunologic: Denies: facial swelling Abdominal Pain PMH - Past Medical History Medical history: Reports: hypertension, other Male Surgical History: Reports: other Psychiatric history: Reports: no psych history - Social History Smoking status: Never smoker Alcohol use: Reports: rarely Drug use: Reports: none Physical Exam - General Limitations: no limitations General appearance: alert, in no apparent distress - Head Head exam: atraumatic, normocephalic - Eye Eye exam: Present: EOMI - ENT ENT exam: mucous membranes moist - Neck Neck exam: Present: full ROM - Chest Chest inspection: Present: symmetric chest wall rise - Respiratory Respiratory exam: Absent: prolonged expiratory phase - Cardiovascular Cardiovascular exam: Present: regular rate - Abdominal Exam Abdominal exam: Present: soft, tenderness, normal bowel sounds. Absent: distention, guarding, rebound, hyperactive bowel sounds Abdominal tenderness: Present: RUQ - Extremities Exam Extremities exam: Present: full ROM, normal capillary refill - Back Exam Back exam: Present: full ROM. Absent: CVA tenderness (R), CVA tenderness (L) - Neurological Exam Neurological exam: Present: alert - Psychiatric Psychiatric exam: Present: normal affect, normal mood - Skin Skin exam: Present: warm, dry, intact, normal color. Absent: rash, cyanosis, diaphoresis Course Course Narrative: Patient is a 43-year-old male presents with complaint of right flank pain. He states this had started acutely while he was at work, however he does describe previous episodes in the past including last week in a few months ago. In the past and has not been this severe. He is comes the pain as constant with no radiation or migration. It is accompanied with nausea but he denies any vomiting. He states pain worsens when he lies down flat. He denies any reflux, dysuria, hematuria, vomiting, fever, previous surgical histories. Patient is on methotrexate for her psoriatic arthritis. Patient seen and examined. mild right CVA tenderness. On abdominal examination mild right upper quadrant palpation. Abdomen is obese otherwise normal bowel sounds no lower abdominal pain or left-sided pain. Workup initiated. - Reevaluation(s) Reevaluation #1: Pt agreeable to analgesics and antiemetics. Patient's urinalysis , and appears to be concentrated. Additionally, increase in his creatinine 1.48, GFR 51. Normal BUN. We will order fluids. CT noncontrast abdomen and pelvis ordered for evaluation nephrolithiasis. Time: 05:52 Reevaluation #2: Pt discussed with attending Dr. Rivas who agreed to see patient and agreed with work up. At this time seen in my shift, the patient's CAT scan has been ordered. Analgesics have been ordered. Care of this patient will be transferred over to day shift provider Darrell Ramirez CNP. Please see his documentation for additional details. Time: 06:34 Vital Signs O2 Sat by Pulse Oximetry 98 05/10/19 04:42 Temperature 97.7 F 05/10/19 04:45 Pulse Rate 68 05/10/19 04:45 Respiratory Rate 20 05/10/19 04:45 Blood Pressure 157/82 05/10/19 04:45 O2 Sat by Pulse Oximetry 100 05/10/19 04:45 Oxygen Delivery Oxygen Delivery Room Air Abdominal Pain - Lab Data Lab results reviewed: Yes I reviewed the patient's lab results. Result diagrams: 05/10/19 04:42 05/10/19 04:42 Lab Results 05/10/19 05/10/19 05/10/19 Range/Units 04:42 04:42 04:47 WBC 9.9 (4.3-11.1) K/mcL RBC 4.52 (4.19-5.50) M/mcL Hgb 13.7 (12.9-16.9) g/dL Hct 41.9 (37.5-50.1) % MCV 92.7 (83.0-100.0) fL MCH 30.3 (28.0-33.3) pg MCHC 32.7 (31.6-35.5) g/dL RDW 13.6 (11.5-14.5) % Plt Count 323 (140-400) K/mcL MPV 11.7 (9.4-12.4) fL Immature Gran % 0.3 (0-4) % Seg Neutrophils % 60.7 % Lymphocytes % 24.1 % Monocytes % 11.5 % Eosinophils % 3.0 % Basophils % 0.4 % Neutrophils # 6.0 (1.6-8.9) K/mcL Lymphocytes # 2.4 (0.6-4.6) K/mcL Monocytes # 1.1 (0.0-1.3) K/mcL Eosinophils # 0.3 (0.0-0.6) K/mcL Basophils # 0.0 (0.0-0.2) K/mcL Sodium 139 (136-145) mEq/L Potassium 3.9 (3.5-5.1) mEq/L Chloride 103 (98-107) mEq/L Carbon Dioxide 30 H (23-29) mEq/L BUN 18 (6-20) mg/dL Creatinine 1.48 H (0.70-1.30) mg/dL Est GFR ( Amer) > 60 (> 60) Est GFR (Non-Af Amer) 51 L (> 60) BUN/Creatinine Ratio 12 (6-26) Glucose 126 H (70-105) mg/dL Calculated Osmolality 291 (280-300) Calcium 9.9 (8.6-10.3) mg/dL Total Bilirubin 0.3 (0.3-1.0) mg/dL Direct Bilirubin 0.1 (0.0-0.2) mg/dL Indirect Bilirubin 0.2 (0.0-1.2) mg/dL AST 17 (13-39) Units/L ALT 21 (7-52) Units/L Alkaline Phosphatase 65 (34-104) Units/L Serum Total Protein 7.1 (6.4-8.9) g/dL Albumin 4.4 (3.5-5.7) g/dL Globulin 2.7 (2.4-3.5) g/dL Albumin/Globulin Ratio 1.6 (1.1-2.2) Lipase 19 (11-82) Units/L Urine Color Yellow (Yellow) Urine Clarity Clear (Clear) Urine pH 5.5 (5.0-8.0) pH Units Ur Specific [place] > 1.030 H (1.010-1.025) Urine Protein Negative (Neg-Trace) mg/dL Urine Glucose (UA) Normal (Normal) mg/dL Urine Ketones Negative (Negative) mg/dL Urine Blood Negative (Negative) Urine Nitrite Negative (Negative) Urine Bilirubin Negative (Negative) Urine Urobilinogen Normal (Normal) mg/dL Ur Leukocyte Esterase Negative (Negative) Ur Culture Indicated? NO (NO) S.B.A.R. - S.B.A.R. Situation: Demographics Background: Presenting Complaint Assessment: Vital Signs, Pertinant Lab Results Recommendation: Recommendation based on pending studies, treatments, or consults S.B.A.R. Report Given to: Darrell EdenAKurt Repor Time: 06:00 Attestation Statement - Attestation Attestation: For this encounter, I have reviewed the MAIL DELIVERY SUPERVISOR or PA documentation, treatment plan, and medical decision making; and I have had face to face time with this patient.
--- NOTE | 2019-05-10 06:50 | Emergency Department Note ---
Disposition Clinical Impression: Acute cholecystitis Disposition: Admitted As Inpatient Condition: Good Time of Disposition: 09:24 General Adult HPI - General Chief complaint: ED Abdominal Pain Stated complaint: R Flank Pain Time Seen by Provider: 05/10/19 04:31 Source: patient Limitations: no limitations - History of Present Illness Pain Scale: 8 - Related Data Home Medications Medication Instructions Recorded Confirmed Acetaminophen [Tylenol] 500 mg PO DAILY PRN 05/03/18 05/10/19 Atenolol/Chlorthalidone [Tenoretic 1 tab PO DAILY 05/03/18 05/10/19 50 Tablet] Cholecalciferol (D-3) [Vitamin D] 2,000 unit PO DAILY 05/03/18 05/10/19 Folic Acid 1 mg PO DAILY 05/03/18 05/10/19 Methotrexate Sodium/PF 25 mg IM QWEEK 05/03/18 05/10/19 [Methotrexate Sodium/PF 50 MG/2 ML VIAL] Sildenafil Citrate [Revatio] 20 mg PO TID PRN 05/03/18 05/10/19 Celecoxib [Celebrex] 200 mg PO DAILY 05/10/19 05/10/19 Docusate [Colace] 100 mg PO BID PRN 05/10/19 05/10/19 Allergies Allergy/AdvReac Type Severity Reaction Status Date / Time Penicillins [PCN] AdvReac Hives Verified 05/10/19 05:15 Constitutional: Denies: fever, chills, weakness Cardiovascular: Denies: chest pain, palpitations Respiratory: Denies: dyspnea Gastrointestinal: Reports: as per HPI. Denies: nausea, vomiting, diarrhea, constipation, hematemesis Genitourinary: Denies: dysuria, frequency, hematuria Musculoskeletal: Reports: as per HPI Integumentary: Denies: rash Neurological: Denies: headache Hematological/Lymphatic: Denies: lymphadenopathy Allergic/Immunologic: Denies: facial swelling Past Medical History - Past Medical History Medical history: Reports: hypertension, other Surgical history: Reports: no surgical history Psychiatric history: Reports: no psych history - Social History Smoking Status: Never smoker Smokeless Tobacco Status: No Alcohol use: Reports: rarely Drug use: Reports: none Physical Exam - General Limitations: no limitations General appearance: alert, in no apparent distress Course Course Narrative: 0600: I have assumed care of this patient from DANIELE Weiss due to mid-level shift change. Please see Abhishek's documentation for care performed prior to my arrival as well as complete physical examination findings. Briefly, this is a nontoxic-appearing 43-year-old male presented with complaints of right flank pain that started acutely prior to arrival while at work. He had had previous episodes in the past, the most recent of which was just last week. He stated pain has not been severe as tonight. It is constant and does not radiate or migrate. He has some mild nausea but denied any vomiting. At this time, CT the abdomen and pelvis is pending. Disposition pending. - Consultations Consultation #1: I spoke with Dr. Davies regarding this patient's case, presentation, laboratory workup, and radiology results. She agrees with the diagnosis of acute cholecystitis. She states that she will admit the patient to her service for cholecystectomy later this afternoon. She requests maintenance fluids of normal saline at 125 mL per hour as well as a one-time dose of Levaquin, 750 mg IV piggyback be started. The patient will remain nothing by mouth. The patient and his significant other have been updated on this plan and are in agreement. Again, he states that his pain is well controlled at this time as well as his nausea. Time: 09:12 Vital Signs O2 Sat by Pulse Oximetry 98 05/10/19 04:42 Temperature 97.7 F 05/10/19 04:45 Pulse Rate 64 05/10/19 06:43 Respiratory Rate 20 05/10/19 06:43 Blood Pressure 180/102 05/10/19 06:43 O2 Sat by Pulse Oximetry 99 05/10/19 06:43 Oxygen Delivery Oxygen Delivery Room Air Medical Decision Making - Medical Records Medical records reviewed: Yes I reviewed the patient's medical records. - Lab Data Lab results reviewed: Yes I reviewed the patient's lab results. Lab results narrative: Lab Results 05/10/19 05/10/19 05/10/19 Range/Units 04:42 04:42 04:47 WBC 9.9 (4.3-11.1) K/mcL RBC 4.52 (4.19-5.50) M/mcL Hgb 13.7 (12.9-16.9) g/dL Hct 41.9 (37.5-50.1) % MCV 92.7 (83.0-100.0) fL MCH 30.3 (28.0-33.3) pg MCHC 32.7 (31.6-35.5) g/dL RDW 13.6 (11.5-14.5) % Plt Count 323 (140-400) K/mcL MPV 11.7 (9.4-12.4) fL Immature Gran % 0.3 (0-4) % Seg Neutrophils % 60.7 % Lymphocytes % 24.1 % Monocytes % 11.5 % Eosinophils % 3.0 % Basophils % 0.4 % Neutrophils # 6.0 (1.6-8.9) K/mcL Lymphocytes # 2.4 (0.6-4.6) K/mcL Monocytes # 1.1 (0.0-1.3) K/mcL Eosinophils # 0.3 (0.0-0.6) K/mcL Basophils # 0.0 (0.0-0.2) K/mcL Sodium 139 (136-145) mEq/L Potassium 3.9 (3.5-5.1) mEq/L Chloride 103 (98-107) mEq/L Carbon Dioxide 30 H (23-29) mEq/L BUN 18 (6-20) mg/dL Creatinine 1.48 H (0.70-1.30) mg/dL Est GFR ( Amer) > 60 (> 60) Est GFR (Non-Af Amer) 51 L (> 60) BUN/Creatinine Ratio 12 (6-26) Glucose 126 H (70-105) mg/dL Calculated Osmolality 291 (280-300) Calcium 9.9 (8.6-10.3) mg/dL Total Bilirubin 0.3 (0.3-1.0) mg/dL Direct Bilirubin 0.1 (0.0-0.2) mg/dL Indirect Bilirubin 0.2 (0.0-1.2) mg/dL AST 17 (13-39) Units/L ALT 21 (7-52) Units/L Alkaline Phosphatase 65 (34-104) Units/L Serum Total Protein 7.1 (6.4-8.9) g/dL Albumin 4.4 (3.5-5.7) g/dL Globulin 2.7 (2.4-3.5) g/dL Albumin/Globulin Ratio 1.6 (1.1-2.2) Lipase 19 (11-82) Units/L Urine Color Yellow (Yellow) Urine Clarity Clear (Clear) Urine pH 5.5 (5.0-8.0) pH Units Ur Specific [place] > 1.030 H (1.010-1.025) Urine Protein Negative (Neg-Trace) mg/dL Urine Glucose (UA) Normal (Normal) mg/dL Urine Ketones Negative (Negative) mg/dL Urine Blood Negative (Negative) Urine Nitrite Negative (Negative) Urine Bilirubin Negative (Negative) Urine Urobilinogen Normal (Normal) mg/dL Ur Leukocyte Esterase Negative (Negative) Ur Culture Indicated? NO (NO) Result diagrams: 05/10/19 04:42 05/10/19 04:42 Lab Results 05/10/19 05/10/19 05/10/19 Range/Units 04:42 04:42 04:47 WBC 9.9 (4.3-11.1) K/mcL RBC 4.52 (4.19-5.50) M/mcL Hgb 13.7 (12.9-16.9) g/dL Hct 41.9 (37.5-50.1) % MCV 92.7 (83.0-100.0) fL MCH 30.3 (28.0-33.3) pg MCHC 32.7 (31.6-35.5) g/dL RDW 13.6 (11.5-14.5) % Plt Count 323 (140-400) K/mcL MPV 11.7 (9.4-12.4) fL Immature Gran % 0.3 (0-4) % Seg Neutrophils % 60.7 % Lymphocytes % 24.1 % Monocytes % 11.5 % Eosinophils % 3.0 % Basophils % 0.4 % Neutrophils # 6.0 (1.6-8.9) K/mcL Lymphocytes # 2.4 (0.6-4.6) K/mcL Monocytes # 1.1 (0.0-1.3) K/mcL Eosinophils # 0.3 (0.0-0.6) K/mcL Basophils # 0.0 (0.0-0.2) K/mcL Sodium 139 (136-145) mEq/L Potassium 3.9 (3.5-5.1) mEq/L Chloride 103 (98-107) mEq/L Carbon Dioxide 30 H (23-29) mEq/L BUN 18 (6-20) mg/dL Creatinine 1.48 H (0.70-1.30) mg/dL Est GFR ( Amer) > 60 (> 60) Est GFR (Non-Af Amer) 51 L (> 60) BUN/Creatinine Ratio 12 (6-26) Glucose 126 H (70-105) mg/dL Calculated Osmolality 291 (280-300) Calcium 9.9 (8.6-10.3) mg/dL Total Bilirubin 0.3 (0.3-1.0) mg/dL Direct Bilirubin 0.1 (0.0-0.2) mg/dL Indirect Bilirubin 0.2 (0.0-1.2) mg/dL AST 17 (13-39) Units/L ALT 21 (7-52) Units/L Alkaline Phosphatase 65 (34-104) Units/L Serum Total Protein 7.1 (6.4-8.9) g/dL Albumin 4.4 (3.5-5.7) g/dL Globulin 2.7 (2.4-3.5) g/dL Albumin/Globulin Ratio 1.6 (1.1-2.2) Lipase 19 (11-82) Units/L Urine Color Yellow (Yellow) Urine Clarity Clear (Clear) Urine pH 5.5 (5.0-8.0) pH Units Ur Specific [place] > 1.030 H (1.010-1.025) Urine Protein Negative (Neg-Trace) mg/dL Urine Glucose (UA) Normal (Normal) mg/dL Urine Ketones Negative (Negative) mg/dL Urine Blood Negative (Negative) Urine Nitrite Negative (Negative) Urine Bilirubin Negative (Negative) Urine Urobilinogen Normal (Normal) mg/dL Ur Leukocyte Esterase Negative (Negative) Ur Culture Indicated? NO (NO) - Radiology Data Radiology results reviewed: Yes I reviewed the patient's radiology results. Abdomen/Pelvis CT 05/10/19 07:29 IMPRESSION: 1. New mild gallbladder thickening and adjacent inflammatory changes which may relate to acute cholecystitis. Further evaluation with right upper quadrant ultrasound is recommended. 2. No evidence of biliary obstruction. 3. The previously identified soft tissue inflammatory changes along the left lateral margin of the anus have resolved. 4. Mild improving bilateral inguinal lymphadenopathy which likely is reactive in nature. D/ / 05/10/2019 07:44:36 Vipul Holguin MD / luz marina Interpreting Provider: Vipul Holguin MD Gallbladder Ultrasound 05/10/19 08:41 IMPRESSION: Thickened gallbladder wall with small amount of pericholecystic fluid and biliary sludge without gallstones seen or sonographic Sheikh sign elicited. The findings are concerning for possible acalculous cholecystitis. If there is further clinical concern a HIDA scan is recommended. D/ / 05/10/2019 09:03:19 Don Juarez MD / evens Interpreting Provider: Don Juarez MD
--- NOTE | 2019-05-10 07:10 | Emergency Department Note ---
Disposition Clinical Impression: Right flank pain Disposition: Still a Patient Condition: Good Time of Disposition: 07:10 Abdominal Pain HPI - General Chief Complaint: ED Abdominal Pain Stated Complaint: R Flank Pain Time Seen by Provider: 05/10/19 04:31 Source: patient Mode of arrival: ambulatory Nursing Notes Reviewed: Yes Vital Signs Reviewed: Yes - History of Present Illness Pt Subjective Complaint: flank pain Location: R flank Pain Scale: 8 Migration to: no migration Worsens with: other (supine completely) Context: history of similar episodes Associated symptoms: Reports: nausea. Denies: vomiting, diarrhea, fever, chills, dysuria, hematemesis, hematochezia, melena, hematuria - Related Data Home Medications Medication Instructions Recorded Confirmed Acetaminophen [Tylenol] 500 mg PO DAILY PRN 05/03/18 05/10/19 Atenolol/Chlorthalidone [Tenoretic 1 tab PO DAILY 05/03/18 05/10/19 50 Tablet] Cholecalciferol (D-3) [Vitamin D] 2,000 unit PO DAILY 05/03/18 05/10/19 Folic Acid 1 mg PO DAILY 05/03/18 05/10/19 Methotrexate Sodium/PF 25 mg IM QWEEK 05/03/18 05/10/19 [Methotrexate Sodium/PF 50 MG/2 ML VIAL] Sildenafil Citrate [Revatio] 20 mg PO TID PRN 05/03/18 05/10/19 Celecoxib [Celebrex] 200 mg PO DAILY 05/10/19 05/10/19 Docusate [Colace] 100 mg PO BID PRN 05/10/19 05/10/19 Allergies Allergy/AdvReac Type Severity Reaction Status Date / Time Penicillins [PCN] AdvReac Hives Verified 05/10/19 05:15 Constitutional: Denies: fever, chills, weakness Cardiovascular: Denies: chest pain, palpitations Respiratory: Denies: dyspnea Gastrointestinal: Reports: as per HPI. Denies: nausea, vomiting, diarrhea, constipation, hematemesis Genitourinary: Denies: dysuria, frequency, hematuria Musculoskeletal: Reports: as per HPI Integumentary: Denies: rash Neurological: Denies: headache Hematological/Lymphatic: Denies: lymphadenopathy Allergic/Immunologic: Denies: facial swelling Abdominal Pain PMH - Past Medical History Medical history: Reports: hypertension, other Male Surgical History: Reports: other Psychiatric history: Reports: no psych history - Social History Smoking status: Never smoker Alcohol use: Reports: rarely Drug use: Reports: none Physical Exam - General Limitations: no limitations General appearance: alert, in no apparent distress - Head Head exam: atraumatic, normocephalic, normal inspection - ENT ENT exam: normal exam, normal oropharynx, mucous membranes moist - Neck Neck exam: Present: normal inspection, full ROM, trachea midline - Chest Chest inspection: Present: normal inspection, symmetric chest wall rise. Absent: tenderness - Respiratory Respiratory exam: Present: normal lung sounds bilaterally. Absent: respiratory distress, wheezes - Cardiovascular Cardiovascular exam: Present: regular rate, normal rhythm, normal heart sounds - Abdominal Exam Abdominal exam: Present: soft, normal bowel sounds. Absent: tenderness, distention, guarding, rebound, rigidity Abdominal tenderness: Present: RUQ - Extremities Exam Extremities exam: Present: normal inspection, full ROM. Absent: tenderness, pedal edema Course Vital Signs O2 Sat by Pulse Oximetry 98 05/10/19 04:42 Temperature 97.7 F 05/10/19 04:45 Pulse Rate 64 05/10/19 06:43 Respiratory Rate 20 05/10/19 06:43 Blood Pressure 180/102 05/10/19 06:43 O2 Sat by Pulse Oximetry 99 05/10/19 06:43 Oxygen Delivery Oxygen Delivery Room Air Abdominal Pain - MDM Narrative Medical decision making narrative: I agree with assessment disposition of QUALITY CONTROL ASSESSOR Bernarda Lundberg Please see his corresponding note and James QUALITY CONTROL ASSESSOR note for dispol - Lab Data Result diagrams: 05/10/19 04:42 05/10/19 04:42 Lab Results 05/10/19 05/10/19 05/10/19 Range/Units 04:42 04:42 04:47 WBC 9.9 (4.3-11.1) K/mcL RBC 4.52 (4.19-5.50) M/mcL Hgb 13.7 (12.9-16.9) g/dL Hct 41.9 (37.5-50.1) % MCV 92.7 (83.0-100.0) fL MCH 30.3 (28.0-33.3) pg MCHC 32.7 (31.6-35.5) g/dL RDW 13.6 (11.5-14.5) % Plt Count 323 (140-400) K/mcL MPV 11.7 (9.4-12.4) fL Immature Gran % 0.3 (0-4) % Seg Neutrophils % 60.7 % Lymphocytes % 24.1 % Monocytes % 11.5 % Eosinophils % 3.0 % Basophils % 0.4 % Neutrophils # 6.0 (1.6-8.9) K/mcL Lymphocytes # 2.4 (0.6-4.6) K/mcL Monocytes # 1.1 (0.0-1.3) K/mcL Eosinophils # 0.3 (0.0-0.6) K/mcL Basophils # 0.0 (0.0-0.2) K/mcL Sodium 139 (136-145) mEq/L Potassium 3.9 (3.5-5.1) mEq/L Chloride 103 (98-107) mEq/L Carbon Dioxide 30 H (23-29) mEq/L BUN 18 (6-20) mg/dL Creatinine 1.48 H (0.70-1.30) mg/dL Est GFR ( Amer) > 60 (> 60) Est GFR (Non-Af Amer) 51 L (> 60) BUN/Creatinine Ratio 12 (6-26) Glucose 126 H (70-105) mg/dL Calculated Osmolality 291 (280-300) Calcium 9.9 (8.6-10.3) mg/dL Total Bilirubin 0.3 (0.3-1.0) mg/dL Direct Bilirubin 0.1 (0.0-0.2) mg/dL Indirect Bilirubin 0.2 (0.0-1.2) mg/dL AST 17 (13-39) Units/L ALT 21 (7-52) Units/L Alkaline Phosphatase 65 (34-104) Units/L Serum Total Protein 7.1 (6.4-8.9) g/dL Albumin 4.4 (3.5-5.7) g/dL Globulin 2.7 (2.4-3.5) g/dL Albumin/Globulin Ratio 1.6 (1.1-2.2) Lipase 19 (11-82) Units/L Urine Color Yellow (Yellow) Urine Clarity Clear (Clear) Urine pH 5.5 (5.0-8.0) pH Units Ur Specific [place] > 1.030 H (1.010-1.025) Urine Protein Negative (Neg-Trace) mg/dL Urine Glucose (UA) Normal (Normal) mg/dL Urine Ketones Negative (Negative) mg/dL Urine Blood Negative (Negative) Urine Nitrite Negative (Negative) Urine Bilirubin Negative (Negative) Urine Urobilinogen Normal (Normal) mg/dL Ur Leukocyte Esterase Negative (Negative) Ur Culture Indicated? NO (NO)
[2019-05-10] MEDS ORDERED: levoFLOXacin 750 MG/150 ML 750 MG/150 ML BAG IVPB ONE (09:21)
[2019-05-10] MEDS: 0.9 % Sodium Chloride 1,000 ML IVC SCH ×3 (11:42→18:59)
--- NOTE | 2019-05-10 12:18 | Acute Care Surgery H&P ---
Date of Encounter: 05/10/19 Time of Encounter: 12:15 Assessment and Plan (1) Acute cholecystitis due to biliary calculus Current Visit: Yes Status: Acute The assessment and plan as outlined above was discussed with the patient and/or family members who expressed understanding and agreement. All questions were answered. Pt diagnosis of acute cholecystitis with cholelithiasis is discussed. Laparoscopic Cholecystectomy is recommended. Procedure for the surgery, risks and benefits are discussed in detail. Possible known complications for L aparoscopic Cholecystectomy are bleeding, infection, bile duct injury, bile leak, small intestine or stomach injury, stroke, DVT/PE, NH or . Pt understands these risks, which in this case are . Pt wishes to proceed with surgery as soon as possible. Informed consent is obtained. Pt condition is stable. Surgery is scheduled. History of Present Illness Chief complaint: RUQ abdominal pain HPI: Mr. Sidhu is a 43 year old male who presents to [facility] c/o severe RUQ abdominal pain. Pt reports pain is severe and unrelenting. Pt reports pain is repetitive and he has had multiple episodes several times over the last 2 weeks. Today the pain is intractable. Pt c/o epigastric pain as well. Pt reports pain radiates into back. Pt reports intractable nausea and vomiting. Pt denies changes in BM. Pt denies CP or SOB. Pt denies fever. Past Med Surg Social Fam HX - Past Medical History Medical history: hypertension, other Additional medical history: Soriatic arthritis, psoriasis of the skin Psychiatric history: no psych history - Past Surgical History Surgical History: no surgical history Additional surgical history: abscess w/fistula rectal repair - Social History Smoking Status: Never smoker Smokeless Tobacco Status: No Alcohol use: rarely Drug use: none - Family History Mother Living Status: Still Living Hx Family Endocrine Disorder: Yes (DM) Medications and Allergies Acetaminophen [Tylenol] 500 mg PO DAILY PRN 05/03/18 [History] Atenolol/Chlorthalidone [Tenoretic 50 Tablet] 1 tab PO DAILY 05/03/18 [History] Cholecalciferol (D-3) [Vitamin D] 2,000 unit PO DAILY 05/03/18 [History] Folic Acid 1 mg PO DAILY 05/03/18 [History] Methotrexate Sodium/PF [Methotrexate Sodium/PF 50 MG/2 ML VIAL] 25 mg IM QWEEK 05/03/18 [History] Sildenafil Citrate [Revatio] 20 mg PO TID PRN 05/03/18 [History] Celecoxib [Celebrex] 200 mg PO DAILY 05/10/19 [History] Docusate [Colace] 100 mg PO BID PRN 05/10/19 [History] 3 Allergy/AdvReac Type Severity Reaction Status Date / Time Penicillins [PCN] AdvReac Hives Verified 05/10/19 05:15 Review of Systems All systems PM: The remainder of the systems were reviewed and are negative - Constitutional anorexia, no chills, no fatigue, no fever(s), no weakness - EENT Nose, mouth and throat: dry mouth, no dysphagia, no nasal congestion, no nasal discharge, no sinus pain, no sinus pressure, no sore throat - Cardiovascular no chest pain, no diaphoresis, no dyspnea, no edema - Respiratory other (hx JUSTYNA), no cough, no dyspnea, no wheezing - Gastrointestinal abdominal pain, belching, bloating, cramping, heartburn, nausea, vomiting, no constipation, no diarrhea - Genitourinary no dysuria, no hematuria, no urinary frequency - Musculoskeletal back pain, no joint swelling, no limited range of motion, no neck pain - Integumentary no dry skin, no pruritus, no rash, no wounds, no jaundice - Neurological no confusion, no dizziness, no focal weakness, no weakness - Psychiatric no anxiety, no depression - Hematologic/Lymphatic no easy bleeding, no easy bruising General Surgery Exam Initial Vital Signs Pulse Ox 98 05/10/19 04:42 - General physical appearance moderate distress, moderate pain, obese. negative: jaundice - Eyes PERRL, normal ocular movement. negative: icteric - ENT no congestion, dry mucosa. negative: nasal discharge - Neck trachea midline, no lymphadectomy, no venous distension - Respiratory normal respiratory effort, clear to auscultation - Cardiovascular Cardiovascular exam: Present: RRR. Absent: JVD - Abdomen Abdomen general surgery: Present: bowel sounds present, soft, tender. Absent: distended Abdominal Tenderness: Present: RUQ - Genitourinary Present: normal penis with no external lesions - Integumentary Integumentary general surgery: Present: warm and dry - Neurologic Present: CN 2-12 grossly intact, normal coordination - Musculoskeletal Present: normal posture - Psychiatric Psychiatric general surgery: Present: A&Ox3, appropriate Results - Labs 05/10/19 04:42 05/10/19 04:42 Abnormal lab results Carbon Dioxide 30 mEq/L (23-29) H 05/10/19 04:42 Creatinine 1.48 mg/dL (0.70-1.30) H 05/10/19 04:42 Est GFR (Non-Af Amer) 51 (> 60) L 05/10/19 04:42 Glucose 126 mg/dL (70-105) H 05/10/19 04:42 Ur Specific [place] > 1.030 (1.010-1.025) H 05/10/19 04:47 Diabetes panel 05/10/19 Range/Units 04:42 Sodium 139 (136-145) mEq/L Potassium 3.9 (3.5-5.1) mEq/L Chloride 103 (98-107) mEq/L Carbon Dioxide 30 H (23-29) mEq/L BUN 18 (6-20) mg/dL Creatinine 1.48 H (0.70-1.30) mg/dL Glucose 126 H (70-105) mg/dL Calcium 9.9 (8.6-10.3) mg/dL AST 17 (13-39) Units/L ALT 21 (7-52) Units/L Alkaline Phosphatase 65 (34-104) Units/L Albumin 4.4 (3.5-5.7) g/dL Calcium panel 05/10/19 Range/Units 04:42 Calcium 9.9 (8.6-10.3) mg/dL Albumin 4.4 (3.5-5.7) g/dL Pituitary panel 05/10/19 Range/Units 04:42 Sodium 139 (136-145) mEq/L Potassium 3.9 (3.5-5.1) mEq/L Chloride 103 (98-107) mEq/L Carbon Dioxide 30 H (23-29) mEq/L BUN 18 (6-20) mg/dL Creatinine 1.48 H (0.70-1.30) mg/dL Glucose 126 H (70-105) mg/dL Calcium 9.9 (8.6-10.3) mg/dL Adrenal panel 05/10/19 Range/Units 04:42 Sodium 139 (136-145) mEq/L Potassium 3.9 (3.5-5.1) mEq/L Chloride 103 (98-107) mEq/L Carbon Dioxide 30 H (23-29) mEq/L BUN 18 (6-20) mg/dL Creatinine 1.48 H (0.70-1.30) mg/dL Glucose 126 H (70-105) mg/dL Calcium 9.9 (8.6-10.3) mg/dL Total Bilirubin 0.3 (0.3-1.0) mg/dL AST 17 (13-39) Units/L ALT 21 (7-52) Units/L Alkaline Phosphatase 65 (34-104) Units/L Albumin 4.4 (3.5-5.7) g/dL All other labs normal. - Imaging CT scan - abdomen: image reviewed (New mild gallbladder thickening and adjacent inflammatory changes which may relate to acute cholecystitis.) CT scan - pelvis: image reviewed US - abdomen: image reviewed ( The gallbladder wall is thickened and there is pericholecystic fluid present. Sludge in the gallbladder is present.)
[2019-05-10] MEDS ORDERED: Ondansetron 4 MG/2 ML VIAL IVP PRN ×2 (13:00→18:15)
--- NOTE | 2019-05-10 15:50 | Anesthesia Evaluation PreOp ---
Date of Encounter: 05/10/19 Time of Encounter: 15:48 - Past History Planned Operation: lap kelsey Cardiac History: HTN Pulmonary History: JUSTYNA Dx (doesn't use CPAP) TAILMAN History: Denies Any Significant HX Other Medical History: Other (obese BMI 43) Anesthesia History: No Prior Anesthetic Complications, Past Anesthesia (abcess I&D) Alcohol Use: rarely Drug use: none Medications and Allergies Acetaminophen [Tylenol] 500 mg PO DAILY PRN 05/03/18 [History] Atenolol/Chlorthalidone [Tenoretic 50 Tablet] 1 tab PO DAILY 05/03/18 [History] Cholecalciferol (D-3) [Vitamin D] 2,000 unit PO DAILY 05/03/18 [History] Folic Acid 1 mg PO DAILY 05/03/18 [History] Methotrexate Sodium/PF [Methotrexate Sodium/PF 50 MG/2 ML VIAL] 25 mg IM QWEEK 05/03/18 [History] Sildenafil Citrate [Revatio] 20 mg PO TID PRN 05/03/18 [History] Celecoxib [Celebrex] 200 mg PO DAILY 05/10/19 [History] Docusate [Colace] 100 mg PO BID PRN 05/10/19 [History] Allergy/AdvReac Type Severity Reaction Status Date / Time Penicillins [PCN] AdvReac Hives Verified 05/10/19 05:15 - Meds/Allergy Pre-op Review Medications Reviewed: Yes Allergies Reviewed: Yes Beta Blockers on Current Med List: No Anesthesia Results - Labs 05/10/19 04:42 05/10/19 04:42 Anesthesia Exam Selected Entries 05/10/19 11:56 Temperature 97.9 F Pulse Rate 57 Respiratory Rate 18 Blood Pressure 126/83 O2 Sat by Pulse Oximetry 96 Oxygen Delivery Method Room Air Weight: 145kg BMI 43 NPO (# of Hours): 12 - HEENT Pupil (Motor): EOMI Mallampati: III Teeth: Normal Oral Opening: Less than or equal to 3 - TAILMAN LOC: Oriented TAILMAN Motor: Normal RUE, Normal LUE, Normal RLE, Normal LLE, Normal Face TAILMAN Sensory: Normal: RUE, LUE, RLE, LLE, Face - Cardiac Rhythm: Regular Murmur: None - Pulmonary Breath Sounds: bilateral Clear Respiratory Effort: Symmetrical Anesthesia Assess/Plan ASA Score: 2 Level of consciousness: Cooperative, Oriented Anesthetic Plan: General Monitoring Plan: Standard Monitors Recovery Plan: PACU (agrees to GA)
[2019-05-10] MEDS ORDERED: *HR* HYDROmorphone (PF) 1 MG/ML SYRINGE IVP PRN (15:51)
[2019-05-10] MEDS ORDERED: *HR* Promethazine 25 MG/ML VIAL IVP PRN (15:51)
[2019-05-10] MEDS ORDERED: Ketorolac 30 MG/ML VIAL IVP ONE (15:51)
[2019-05-10] MEDS ORDERED: traMADol 50 MG TABLET PO PRN (15:51)
[2019-05-10] MEDS ORDERED: *HR* OxyCODONE Immed Rel 5 MG TABLET PO PRN (15:51)
[2019-05-10] MEDS ORDERED: MetroNIDAZOLE 500 MG/100 ML 500 MG/100 ML BAG IVPB ONE (16:00)
[2019-05-10] MEDS: Ringers Solution, Lactated 1,000 ML IVC SCH ×2 (16:00→18:05)
[2019-05-10] MEDS ORDERED: Bupivacaine/EPI 1:200k 0.5%PF 30 ML VIAL ONE (16:10)
[2019-05-10] MEDS ORDERED: Ondansetron 4 MG/2 ML VIAL ONE (16:25)
[2019-05-10] MEDS ORDERED: *HR* Succinylcholine 200 MG/10 ML VIAL IVP ONE (16:25)
[2019-05-10] MEDS ORDERED: *HR* Propofol 200 MG/20 ML VIAL IVP ONE ×2 (16:25)
[2019-05-10] MEDS ORDERED: Lidocaine -MPF 2% 2 ML VIAL ONE (16:25)
[2019-05-10] MEDS ORDERED: Dexamethasone 4 MG/ML VIAL ONE (16:25)
[2019-05-10] MEDS ORDERED: *HR* Rocuronium Bromide 50 MG/5 ML VIAL ONE (16:25)
[2019-05-10] MEDS ORDERED: *HR* FentaNYL (PF) 100 MCG/2 ML VIAL ONE (16:25)
[2019-05-10] MEDS ORDERED: Lidocaine -MPF 4% 5 ML AMPUL ONE (16:25)
[2019-05-10] MEDS ORDERED: *HR* Midazolam HCl 2 MG/2 ML VIAL ONE (16:25)
[2019-05-10] MEDS ORDERED: *HR* HYDROMORPHONE 2 MG/ML VIAL ONE (16:25)
--- NOTE | 2019-05-10 17:49 | Operative Note ---
Date of procedure: 05/10/19 Pre-op diagnosis: acute cholecystitis with cholelithiasis Post-op diagnosis: same Procedure: Lapsaroscopic cholecystectomy Complications: none Anesthesia: GETA Surgeon: Cande Keene Was there an bilingual legal assistant present: Yes Clerical Car Checker: Connie Peña Estimated blood loss (cc): 25 Specimen: gallbladder Condition: stable Disposition: PACU Procedure in Detail: This 43 year-old male pr was taken to the operating room and placed in the supine position. The anterior abdominal wall is prepped and draped in the usual sterile fashion. A 1-2 cm curvilinear incision is made in the infraumbilical area and subcutaneous tissue was dissected down to anterior rectus fascia. Fascia is grasped with a Kaia clamp, stay sutures were placed in the fascia is divided. Posterior rectus fascia and peritoneum were elevated and divided in the same manner. A Marcio port is inserted. Under direct visualization after the injection of 0.5% Marcaine the x3 5 mm ports are inserted in the right subcostal space under direct visualization. Exploration of the intraabdominal cavity reveals an abnormal gallbladder. The patient is placed in reverse Trendelenburg position and rotated to the left. The gallbladder is grasped and retracted in cephalad direction. It is also grasped and retracted in the lateral direction. The cystic duct was carefully identified circumferentially dissected doubly clipped and divided between clips. The cystic artery is carefully identified and circumferentially dissected and divided between clips. The gallbladder is dissected off the liver bed using electrocautery. Hemostasis was perfected using electrocautery. The gallbladder is removed from the intra- abdominal cavity using an Endo Catch bag. Copious irrigation is carried out in the intra-abdominal cavity, Corona's pouch and the gallbladder fossa. The pneumoperitoneum was allowed to escape under direct visualization. The ports were removed also under direct visualization. The fascia at the infraumbilical incision is closed using 0 Vicryl sutures. All skin incisions are closed using 4-0 Monocryl subcuticular stitches. Steri-Strips are placed. Sterile dressing is placed. Patient tolerated procedure well was taken to the PACU in good condition.
[2019-05-10] MEDS ORDERED: MetroNIDAZOLE 500 MG/100 ML 500 MG/100 ML BAG IVPB SCH (18:00)
[2019-05-10] MEDS ORDERED: Acetaminophen IV 1,000 MG/100 ML INFUS..BTL IVPB SCH (18:00)
[2019-05-10] MEDS ORDERED: Sildenafil Citrate 20 MG TABLET PO PRN (18:15)
--- NOTE | 2019-05-10 18:24 | Anesthesia Evaluation Post Op ---
Date of Encounter: 05/10/19 Time of Encounter: 18:23 - Vital Signs Vital Signs: Vital Signs/O2 Sat/Glucose, Most Recent Temp Pulse Resp BP Pulse Ox 97.9 F 67 14 143/77 98 05/10/19 17:48 05/10/19 18:18 05/10/19 18:18 05/10/19 18:18 05/10/19 18:18 - Lungs Lungs: Clear Ascult./Percussion - Airway Airway: Non-obstructed - Cardiovascular Regular Rate, Baseline Rhythm - Mental Status Mental Status: Alert & Oriented, Answers Appropriately - Pain Pain Scale: 0 Pain Scale used: Numeric (1 - 10) - Nausea Vomiting Nausea Vomiting: Not Present - Hydration Hydration: Tolerates oral liquids, Ice chips Notes: 05/10/19 18:24 naac - Discharge PostOp Status: Transfer Patient to floor
[2019-05-10] MEDS: MetroNIDAZOLE 500 MG/100 ML 500 MG/100 ML BAG IVPB SCH (23:20)
[2019-05-11] MEDS: Acetaminophen IV 1,000 MG/100 ML INFUS..BTL IVPB SCH ×2 (00:32→06:31)
[2019-05-11] MEDS: 0.9 % Sodium Chloride 1,000 ML IVC SCH (02:53)
[2019-05-11] MEDS: MetroNIDAZOLE 500 MG/100 ML 500 MG/100 ML BAG IVPB SCH (05:20)
--- NOTE | 2019-05-11 07:48 | Discharge Summary ---
<Cierra Kaba - Last Filed: 05/11/19 07:45> Orders not resulted at time of discharge: Pending orders 05/10/19 16:37 Surgical Pathology [PTH] Routine Date of Encounter: 05/11/19 Time of Encounter: 07:45 - Discharge Diagnosis (1) Acute cholecystitis Priority: Primary Status: Resolved General Surgery Exam Initial Vital Signs Pulse Ox 98 05/10/19 04:42 Vital Signs Temp Pulse Resp BP Pulse Ox 05/11/19 03:37 97.5 F L 62 18 131/73 99 05/10/19 23:45 97.6 F 59 16 157/87 98 05/10/19 19:30 98.4 F 59 153/93 95 05/10/19 19:00 97.3 F L 56 16 130/86 98 05/10/19 18:30 97.6 F 70 16 130/85 98 05/10/19 18:18 67 14 143/77 98 05/10/19 18:08 60 14 134/86 96 05/10/19 17:58 60 14 127/74 95 05/10/19 17:48 97.9 F 60 16 134/73 94 05/10/19 11:56 97.9 F 57 18 126/83 96 05/10/19 09:41 63 18 145/81 99 Intake and Output 05/10/19 05/10/19 05/11/19 15:59 23:59 07:59 Intake Total 1377 / 3377 2000 / 3377 1100 / 1100 Output Total 0 / 210 210 / 210 Balance 1377 / 3167 1790 / 3167 1100 / 1100 Intake: IV Fluids 1377 / 3377 2000 / 3377 1100 / 1100 0.9 % Sodium Chloride 1,000 ML 1227 / 1227 0 / 1227 1000 / 1000 @ 125 mls/hr IVC .Q8H [facility] Rx#: [id number] Lactated Ringers 1,000 ML @ 25 2000 / 2000 mls/hr IVC .Q24H [facility] Rx#: [id number] Ofirmev 1,000 mg/100 ml 1,000 0 / 0 mg In 100 ml @ 400 mls/hr IVPB Q6HR [facility] Rx#:[id number] Flagyl Premix 500 MG/100 ML 500 100 / 100 mg In 100 ml @ 100 mls/hr IVPB Q6HR [facility] Rx#:[id number] Levaquin Premix 750mg/150 mL 150 / 150 750 mg In 150 ml @ 100 mls/hr IVPB ONCE ONE Rx#:[id number] Oral 0 / 0 Output: Urine 0 / 0 Estimated Blood Loss 210 / 210 Other: # Bowel Movements 0 Weight 144.696 kg 145.1 kg Patient Weight 05/11/19 23:59 Weight 145.1 kg VITAL SIGNS: Reviewed. See [facility] GENERAL: In no apparent distress. HEENT: Normocephalic, atraumatic, pupils are equal and reactive, extraocular motions intact, oropharynx is pink and moist. CHEST/RESPIRATORY: The thorax is free from signs of trauma. Lung sounds: clear to auscultation, normal respiratory effort CARDIAC: Regular rate and rhythm. Normal S1 and S2, without murmurs, gallops, or rubs. VASCULAR: No Edema. 2+ peripheral pulses. ABDOMEN: soft, expected postoperative tenderness, active bowel sounds INCISION: Surgical incision is clean, dry, and intact. There are no signs of cellulitis or infection noted. MUSCULOSKELETAL: Good range of motion of all major joints. Extremities without clubbing, cyanosis or edema. NEUROLOGIC EXAM: Alert and oriented x 3. Speech normal. Follows commands. PSYCHIATRIC: Mood normal. SKIN: No rash or lesions. - Hospital Course Hospital course: Mr. Sidhu is a 43 year old male who presented on 05/10/2019 for right upper quadrant pain. He was found to have acute cholecystitis. He was taken to the operating room on the same day where he underwent an uncomplicated laparoscopic cholecystectomy. He is ambulating avoiding without difficulty, tolerating a diet without nausea or vomiting, vital signs are stable, and he is afebrile. We will begin discharge planning to home with a follow-up in the office in approximately 2 weeks. He is unable to accommodate lifting restrictions in his employment so he will therefore be written off for approximately 4 weeks. - Time Spent with Patient Total time spent providing and/or coordinating discharge services: - Discharge Medications Prescriptions: New Docusate Sodium [Colace] 100 mg PO BID PRN #30 capsule PRN Reason: Contstipation OxyCODONE/APAP 5/325 [Percocet 5/325 MG] 1 each PO Q6HR PRN 7 Days #28 tablet PRN Reason: Pain Ondansetron ODT [Zofran ODT] 4 mg SL Q4HR PRN #15 tab.rapdis PRN Reason: Postsurgical nausea Continued Atenolol/Chlorthalidone [Tenoretic 50 Tablet] 1 tab PO DAILY Cholecalciferol (D-3) [Vitamin D] 2,000 unit PO DAILY Folic Acid 1 mg PO DAILY Methotrexate Sodium/PF [Methotrexate Sodium/PF 50 MG/2 ML VIAL] 25 mg IM MO Sildenafil Citrate [Revatio] 20 - 60 mg PO DAILY PRN PRN Reason: Erectile Dysfunction Docusate [Colace] 100 mg PO BID PRN PRN Reason: Constipation Celecoxib [Celebrex] 200 mg PO DAILY Discontinued Acetaminophen [Tylenol] 500 mg PO DAILY PRN PRN Reason: Mild To Moderate Pain Home Medications: Atenolol/Chlorthalidone [Tenoretic 50 Tablet] 1 tab PO DAILY 05/03/18 [History] Cholecalciferol (D-3) [Vitamin D] 2,000 unit PO DAILY 05/03/18 [History] Folic Acid 1 mg PO DAILY 05/03/18 [History] Methotrexate Sodium/PF [Methotrexate Sodium/PF 50 MG/2 ML VIAL] 25 mg IM MO 05/03/18 [History] Sildenafil Citrate [Revatio] 20 - 60 mg PO DAILY PRN 05/03/18 [History] Celecoxib [Celebrex] 200 mg PO DAILY 05/10/19 [History] Docusate [Colace] 100 mg PO BID PRN 05/10/19 [History] Docusate Sodium [Colace] 100 mg PO BID PRN #30 capsule 05/11/19 [Rx] Ondansetron ODT [Zofran ODT] 4 mg SL Q4HR PRN #15 tab.rapdis 05/11/19 [Rx] OxyCODONE/APAP 5/325 [Percocet 5/325 MG] 1 each PO Q6HR PRN 7 Days #28 tablet 05/11/19 [Rx] Allergies/Adverse Reactions: Allergy/AdvReac Type Severity Reaction Status Date / Time Penicillins [PCN] AdvReac Hives Verified 05/10/19 05:15 Date of admission: 05/10/19 09:30 Primary care physician: PCP NONE Discharging clinician: Micky Kaba, [employer]) Anticipated date of discharge: 05/11/19 - Impressions ITS Impressions Abdomen/Pelvis CT 05/10/19 07:29 IMPRESSION: 1. New mild gallbladder thickening and adjacent inflammatory changes which may relate to acute cholecystitis. Further evaluation with right upper quadrant ultrasound is recommended. 2. No evidence of biliary obstruction. 3. The previously identified soft tissue inflammatory changes along the left lateral margin of the anus have resolved. 4. Mild improving bilateral inguinal lymphadenopathy which likely is reactive in nature. D/ / 05/10/2019 07:44:36 Vipul Holguin MD / luz marina Interpreting Provider: Vipul Holguin MD Gallbladder Ultrasound 05/10/19 08:41 IMPRESSION: Thickened gallbladder wall with small amount of pericholecystic fluid and biliary sludge without gallstones seen or sonographic Sheikh sign elicited. The findings are concerning for possible acalculous cholecystitis. If there is further clinical concern a HIDA scan is recommended. D/ / 05/10/2019 09:03:19 Don Juarez MD / selwynyer Interpreting Provider: Don Juarez MD - Patient Status Disposition: Home, Self-Care Condition: Good Functional capacity at discharge: independent ambulation Overall status at discharge: patient is progressing back to baseline - Discharge Instructions Instructions: Oxycodone/Acetaminophen (By mouth), Laxative, Stool Softeners (By mouth), Ondansetron (By mouth), Laparoscopic Cholecystectomy (DC) Follow Up With: Cierra Kaba CNP [Advanced Practice Nurse] - 05/25/19 8:30 am Sesar Clements DO [Partnered Physician] - 05/18/19 11:30 am Forms: Inpatient Work/School Release Additional Instructions: General Surgical Discharge Instructions 1. No pushing, pulling, or lifting greater than 15 lbs for 4 weeks. 2. You may remove your dressings and shower beginning today, but no tub baths, soaking, or swimming for 2 weeks. 3. No driving for one weeks unless otherwise specified and then you may resume driving when you are off narcotics and are safe to react in a car. 4. Apply ice 20 minutes every hour that you are awake to your abdomen and Take ibuprofen every 8 hours for discomfort. If this does not relieve discomfort, you may take the as needed Percocet. Eat a small snack with pain medication as this will help reduce the risk of nausea. Take narcotics as directed. Do not take more narcotics then directed and do not share your narcotics with any other person. Do not drink alcohol while on narcotics. You can take the Zofran/ondansetron if needed for nausea or with a dose of narcotics to prevent nausea. 5. Take stool softeners (Colace) or a water based laxative (Miralax) while taking narcotics. You may hold for loose stools. 6. Report any fevers greater than 100.5F, increase abdominal discomfort, drainage that looks like pus, increased redness or pain at the surgical site, or any vomiting. 7. Report any pain in the calves, shortness of breath, or rapid heartbeat. 8. Follow-up in the office as directed. 9. If you were prescribed antibiotics, do not stop them without talking to your provider. - Diet and Activity Activity: increase activity as tolerated Diet: advance to your usual diet <Micky Najera - Last Filed: 05/13/19 08:06> Orders not resulted at time of discharge: Pending orders 05/10/19 16:37 Surgical Pathology [PTH] Routine Date of Encounter: 05/11/19 General Surgery Exam Initial Vital Signs Pulse Ox 98 05/10/19 04:42 - Hospital Course Hospital course: Mr. Sidhu is a 43 year old male - Time Spent with Patient Total time spent providing and/or coordinating discharge services: Date of admission: 05/10/19 09:30 Primary care physician: PCP NONE - Impressions ITS Impressions Abdomen/Pelvis CT 05/10/19 07:29 IMPRESSION: 1. New mild gallbladder thickening and adjacent inflammatory changes which may relate to acute cholecystitis. Further evaluation with right upper quadrant ultrasound is recommended. 2. No evidence of biliary obstruction. 3. The previously identified soft tissue inflammatory changes along the left lateral margin of the anus have resolved. 4. Mild improving bilateral inguinal lymphadenopathy which likely is reactive in nature. D/ / 05/10/2019 07:44:36 Vipul Holguin MD / luz marina Interpreting Provider: Vipul Holguin MD Gallbladder Ultrasound 05/10/19 08:41 IMPRESSION: Thickened gallbladder wall with small amount of pericholecystic fluid and biliary sludge without gallstones seen or sonographic Sheikh sign elicited. The findings are concerning for possible acalculous cholecystitis. If there is further clinical concern a HIDA scan is recommended. D/ / 05/10/2019 09:03:19 Don Juarez MD / selwynyer Interpreting Provider: Don Juarez MD - Patient Status Functional capacity at discharge: independent ambulation Overall status at discharge: patient is progressing back to baseline - Attending Attestation I have personally performed a face to face evaluation on this patient. I have reviewed and agree with the care plan. History and Exam by me shows: I reviewed the above assessment and evaluation and agree with the above plan.
[2019-05-11 08:13] VITALS: BP 129/72
[2019-05-11] MEDS ORDERED: Celecoxib 200 MG CAPSULE PO SCH (09:00)
== END 2019-05-11 10:58 | disposition home or self-care (01) ==
LOC: EMEROOARM 04:27 → 3BNU 09:30 → INTOOBSV 09:30 → 3BNU 10:27
PROVIDERS: ADMIT Surgery; ATTEND Surgery